=== PATIENT | female | born 1960 | race Caucasian/White ===

== ENCOUNTER 2020-02-13 09:46 | Emergency (ER) | payer SELFPAY ==
[~2020-02-13] VITALS: Ht 165.1 cm; Wt 68.0 kg
[~2020-02-13 09:46] MED LIST: NORCO 5-325 TA1 EACH PO; OXYCODONE HCL 55 MG PO; PERCOCET PO
[2020-02-13] MEDS ORDERED: NORCO 5-325 TA1 EAC2 PO (11:19)
[2020-02-13 11:47] VITALS: BP 156/87
== END 2020-02-13 11:30 | disposition home or self-care (01) ==
LOC: M.ERS 09:46
DX: S82.115A Nondisplaced fracture of left tibial spine, initial encounter for closed fracture (principal); W18.39XA Other fall on same level, initial encounter; Y93.89 Activity, other specified; Y92.89 Other specified places as the place of occurrence of the external cause; Y99.8 Other external cause status

== ENCOUNTER 2020-09-27 10:36 | Emergency (ER) | payer OTHER ==
[~2020-09-27] VITALS: Ht 157.5 cm; Wt 66.7 kg
[~2020-09-27 10:36] MED LIST changes: +NORCO 5-325 TA1 EAC2 PO
[2020-09-27 11:06] LABS: URINE BLOOD NEGATIVE (Negative); URINE CLARITY CLEAR; URINE COLOR DARK YELLOW; URINE GLUCOSE-RANDOM NEGATIVE (Negative); URINE KETONES 1+ (Negative); URINE LEUKOCYTES-REFLEX TRACE (Negative); URINE PROTEIN 2+ (Negative)
[2020-09-27 11:07] LABS: ICTOTEST (BILI CONFIRMATORY) Negative (Negative); URINE BILIRUBIN 2+ (Negative); URINE NITRITE-REFLEX POSITIVE (Negative)
[2020-09-27 11:12] LABS: SQUAMOUS 4-10 Moderate /LPF (0-3); URINE WBC-REFLEX 6-15 Few /HPF (0-5)
[2020-09-27 11:13] LABS: CRYSTALS None Seen /LPF (None Seen); HYALINE CASTS 0-3 Few /LPF (None Seen); MUCUS >6 Heavy strn/LPF (None Seen); URINE RBC None Seen /HPF (0-2)
[2020-09-27 11:24] LABS: ABSOLUTE MONOCYTES 0.6 thou/uL (0.0-1.2); ABSOLUTE NEUTROPHILS 5.1 thou/uL (1.6-8.1); BASOPHILS 0.2 %; EOSINOPHILS 0.2 %; HEMATOCRIT 55.1 % (37.0-47.0); HEMOGLOBIN 19.3 gm/dL (12.0-15.0); LYMPHOCYTES 14.8 %; MCH 37.8 pg (26.0-34.0); MCHC 35.1 g/dL (28.0-37.0); MCV 107.6 fL (80.0-100.0); MONOCYTES 9.5 %; MPV 8.6 fl. (7.2-11.1); NUCLEATED RBCS 0 /100WBC; PLATELET COUNT* 232 thou/uL (150-400); POLYS 75.3 %; RBC 5.12 mil/uL (4.20-5.00); WBC 6.8 thou/uL (4.0-11.0)
[2020-09-27 11:32] LABS: CALCIUM 11.7 mg/dL (8.5-10.1); CREATININE 0.5 mg/dL (0.6-1.3); POTASSIUM 3.6 mmol/L (3.5-5.1)
[2020-09-27] MEDS ORDERED: NORCO5 PO (13:04)
[2020-09-27] MEDS ORDERED: MACROBID 100 M100 M2 PO (13:04)
[2020-09-27 13:17] VITALS: BP 156/93
== END 2020-09-27 13:17 | disposition home or self-care (01) ==
LOC: M.ERS 10:36
PROVIDERS: Nurse Practitioner Psychiatric/Mental Health
DX: S32.020A Wedge compression fracture of second lumbar vertebra, initial encounter for closed fracture (principal); S32.030A Wedge compression fracture of third lumbar vertebra, initial encounter for closed fracture; S32.040A Wedge compression fracture of fourth lumbar vertebra, initial encounter for closed fracture; N39.0 Urinary tract infection, site not specified; Z98.51 Tubal ligation status; Z90.721 Acquired absence of ovaries, unilateral; X50.9XXA Other and unspecified overexertion or strenuous movements or postures, initial encounter; Y93.89 Activity, other specified; Y92.89 Other specified places as the place of occurrence of the external cause; Y99.8 Other external cause status